=== PATIENT | female | born 1945 | race Caucasian/White ===

== ENCOUNTER → 2021-08-30 09:24 | Outpatient (CLI) | payer MEDICARE, SELFPAY ==
[2021-08-30 17:03] LABS: SARS-CoV-2 RNA PCR Negative
== END ==
PROVIDERS: PCP Family Medicine; Visit Provider Family Medicine
DX: R05.9 Cough, unspecified (principal); R51.9 Headache, unspecified; Z20.822 Contact with and (suspected) exposure to COVID-19
CPT/HCPCS: C9803; U0003; U0005

== ENCOUNTER → 2022-03-03 12:26 | Outpatient (CLI) | payer MEDICARE, SELFPAY ==
--- NOTE | ~2022-03-03 | DEXA_ITS ---
Bone Density Report Name: DAVEY ALVES Age: 76 Sex: Female Ethnicity: White Date of : 1945 Indication: osteopenia; monitoring treatment; height loss;postmenopausal Referring Provider: ADRIANE KENNEDY Study: Bone densitometry was performed. Exam Date: March 03, 2022 Accession number: [id number] Bone Density: Region BMD T-score Z-score Classification AP Spine (L1-L4) 0.876 -1.6 0.8 Osteopenia Femoral Neck (Left) 0.566 -2.5 -0.5 Osteoporosis Total Hip (Left) 0.756 -1.5 0.2 Osteopenia Femoral Neck (Right) 0.621 -2.1 0.0 Osteopenia Total Hip (Right) 0.733 -1.7 0.0 Osteopenia Total Hip Mean 0.745 -1.6 0.1 Osteopenia World Health Organization criteria for BMD impression classify patients as: Normal (T-score at or above -1.0), Osteopenia (T-score between -1.0 and -2.5), or Osteoporosis (T-score at or below -2.5). 10-year Fracture Risk: FRAX not reported because: Some T-score for Spine Total or Hip Total or Femoral Neck at or below -2.5 Treated for osteoporosis Previous Exams: Region Exam Age BMD T-score BMD Change BMD Change Date g/cm2 vs Baseline vs Previous AP Spine(L1-L4) 03/03/2022 76 0.876 -1.6 0.016 0.029* 08/31/2017 71 0.847 -1.8 -0.013 0.042* 08/26/2014 68 0.805 -2.2 -0.055* -0.030* 07/16/2012 66 0.835 -1.9 -0.025* -0.025* 11/03/2008 63 0.860 -1.7 Total Hip(Left) 03/03/2022 76 0.756 -1.5 -0.025 -0.023 08/31/2017 71 0.779 -1.3 -0.002 0.051* 08/26/2014 68 0.728 -1.8 -0.052* -0.018 07/16/2012 66 0.746 -1.6 -0.035* -0.035* 11/03/2008 63 0.781 -1.3 Total Hip(Right) 03/03/2022 76 0.733 -1.7 -0.073* -0.025 08/31/2017 71 0.758 -1.5 -0.047* 0.044* 08/26/2014 68 0.715 -1.9 -0.091* -0.067* 07/16/2012 66 0.781 -1.3 -0.025 -0.025 11/03/2008 63 0.806 -1.1 *Denotes significance at 95% confidence level, LSC for AP Spine = 0.022 g/cm2, LSC for Total Hip = 0.027 g/cm2 Clinical Information Provided by Patient: Is being treated for osteoporosis Has used the following medications: Prolia (i.e. denosumab), Vitamin D Patient maximum height was 60.0 Menopause Age: 52 No regular weight bearing exercise Drinks caffeinated beverages Onset of menses at age 15 Number of children 3
== END ==
PROVIDERS: PCP Family Medicine; Visit Provider Family Medicine
DX: Z78.0 Asymptomatic menopausal state (principal); M85.88 Other specified disorders of bone density and structure, other site; M81.0 Age-related osteoporosis without current pathological fracture; M85.852 Other specified disorders of bone density and structure, left thigh; M85.851 Other specified disorders of bone density and structure, right thigh
CPT/HCPCS: 77080

== ENCOUNTER 2022-03-23 13:35 | Outpatient (NON) | payer MEDICARE, SELFPAY ==
[2022-03-23 19:27] LABS: IFOB Positive Control Positive; Immunochemical Fecal Occult Bl Negative (N)
== END 2022-03-23 13:36 | disposition home or self-care (01) ==
LOC: ANHGOSHLAB 13:36
PROVIDERS: PCP Family Medicine; Visit Provider Physician Assistant
DX: D50.0 Iron deficiency anemia secondary to blood loss (chronic) (principal)
CPT/HCPCS: 82274

== ENCOUNTER 2022-07-21 10:11 | Day surgery (SDC) | payer MEDICARE, SELFPAY ==
[2022-05-27 09:31] VITALS: BMI 30.8
[2022-07-12 08:52] VITALS: BMI 30.2
--- NOTE | 2022-07-20 09:44 | WPDANESEPPF ---
Anes - Initial Pre Proc Eval Procedure: Operation Date: 07/21/22 12:30 Proposed Procedures p Screening Colonoscopy - Adryan Fox MD Date/Time: 07/20/22 09:44 Surgeon: Adryan Fox MD Pre Op Diagnosis: History of Colon Polyps Patient Data Age: 76 Gender: F Height: 1.5 m Weight: 68 kg Allergies Allergy/AdvReac Type Severity Reaction Status Date / Time ferrous gluconate AdvReac Mild Diarrhea Verified 07/21/22 11:10 alendronate sodium AdvReac Unknown Nausea Verified 07/21/22 11:10 topiramate AdvReac Unknown nausea Verified 07/21/22 11:10 Home Medications Medication Instructions Recorded Confirmed Type cholecalciferol (vitamin D3) 25 25 mcg PO DAILY 10/06/20 07/21/22 History mcg (1,000 unit) capsule cyclobenzaprine 5 mg tablet 5 mg PO TID PRN muscle spasm #30 10/06/20 07/21/22 Rx tabs sumatriptan succinate 50 mg tablet 50 mg PO ONCE PRN migraine 12/08/21 07/21/22 Rx headache #54 tabs denosumab 60 mg/mL subcutaneous 60 mg subcut [id number] 03/08/22 07/21/22 History syringe (Prolia) atorvastatin 20 mg tablet See Rx Instructions .Route 03/21/22 07/21/22 Rx .COMPLEX #90 tabs propranolol 60 mg capsule,24 See Rx Instructions .Route 03/21/22 07/21/22 Rx hr,extended release .COMPLEX #180 caps ferrous fumarate 324 mg (106 mg 324 mg PO DAILY #90 tabs 05/16/22 07/21/22 Rx iron) tablet sodium,potassium,mag sulfates 17.5 See Rx Instructions PO .COMPLEX 05/27/22 07/21/22 Rx gram-3.13 gram-1.6 gram oral soln #354 mL (Suprep Bowel Prep Kit) pantoprazole 40 mg tablet,delayed See Rx Instructions .Route 06/22/22 07/21/22 Rx release .COMPLEX #90 tabs Patient hx anesthesia problems: none Family hx anesthesia problems: none Results Review: All pre-operative results and documents have been reviewed as part of the pre-operative evaluation. [facility] Past Medical History Medical History (Updated 07/20/22 @ 09:44 by Roque Willis DO) History of chicken pox History of measles Hyperlipidemia Surgical History Surgical History History of appendectomy History of tubal ligation Family History Family History Father Acute myocardial infarction Mother Family history of kidney disease Other Family history of malignant neoplasm of breast in first degree relative Social History Social History Smoking packs per day: 1 Smoking cigarettes per day: 20.0 Smoking status: Never smoker Tobacco type: cigarettes Smoking end date: 01/14/91 Alcohol intake: unknown Substance use: never Substance use type: does not use Living arrangements: with family Spiritual care concerns: No Anes - Eval Final PreProcedure Day of Procedure 07/20/22 09:44 Patient weight: overweight Heart: regular rate and rhythm Lungs: clear to auscultation Airway: Mallampati scale class II Neurological: alert and oriented Last oral intake: >/= 8 hours ASA classification: II Emergent: no Anesthetic plan: proceed Anesthesia type and monitoring: general GIVS and standard monitoring Results Review: All pre-operative results and documents have been reviewed as part of the pre-operative evaluation. Informed Consent: The patient's anesthetic plan and its attendant risks and benefits were discussed with the patient/family/POA. Questions were solicited and answers provided to the satisfaction of the patient/family/POA.
[2022-07-21 11:05] VITALS: BP 150/75; PULSE 67; RESP 16; TEMP 37.1; O2SAT 100
[2022-07-21] MEDS: LACTATED RINGERS 1,000 ML 150 ML IV CONT (11:18)
--- NOTE | 2022-07-21 12:24 | PM.HPGS ---
History of Present Illness History of Present Illness Consent: Risks, benefits, and alternatives have been discussed and questions answered. Patient agrees to proceed with procedure. Chief complaint: History of Colon Polyps Narrative: Ivory Campbell is a 76 year old female Presents for colonoscopy. Patient's current weight appetite bowel movements are normal. She denies abdominal pain. She has had no bleeding. Family history noncontributory. Patient does have a prior history of colon polyps. Most recent colonoscopy [address] Arroyo was unremarkable. Review of Systems Review of Systems: Review of systems noncontributory. [facility] Past Medical History Medical History (Updated 07/21/22 @ 12:25 by Adryan Fox MD) History of chicken pox History of measles Hyperlipidemia Surgical History Surgical History History of appendectomy History of tubal ligation Family History Family History Father Acute myocardial infarction Mother Family history of kidney disease Other Family history of malignant neoplasm of breast in first degree relative Social History Social History Smoking packs per day: 1 Smoking cigarettes per day: 20.0 Smoking status: Never smoker Tobacco type: cigarettes Smoking end date: 01/14/91 Alcohol intake: unknown Substance use: never Substance use type: does not use Living arrangements: with family Spiritual care concerns: No Meds Home Medications and Allergies Home Medications Medication Instructions Recorded Confirmed Type cholecalciferol (vitamin D3) 25 25 mcg PO DAILY 10/06/20 07/21/22 History mcg (1,000 unit) capsule cyclobenzaprine 5 mg tablet 5 mg PO TID PRN muscle spasm #30 10/06/20 07/21/22 Rx tabs sumatriptan succinate 50 mg tablet 50 mg PO ONCE PRN migraine 12/08/21 07/21/22 Rx headache #54 tabs denosumab 60 mg/mL subcutaneous 60 mg subcut [id number] 03/08/22 07/21/22 History syringe (Prolia) atorvastatin 20 mg tablet See Rx Instructions .Route 03/21/22 07/21/22 Rx .COMPLEX #90 tabs propranolol 60 mg capsule,24 See Rx Instructions .Route 03/21/22 07/21/22 Rx hr,extended release .COMPLEX #180 caps ferrous fumarate 324 mg (106 mg 324 mg PO DAILY #90 tabs 05/16/22 07/21/22 Rx iron) tablet sodium,potassium,mag sulfates 17.5 See Rx Instructions PO .COMPLEX 05/27/22 07/21/22 Rx gram-3.13 gram-1.6 gram oral soln #354 mL (Suprep Bowel Prep Kit) pantoprazole 40 mg tablet,delayed See Rx Instructions .Route 06/22/22 07/21/22 Rx release .COMPLEX #90 tabs Allergies Allergy/AdvReac Type Severity Reaction Status Date / Time ferrous gluconate AdvReac Mild Diarrhea Verified 07/21/22 11:10 alendronate sodium AdvReac Unknown Nausea Verified 07/21/22 11:10 topiramate AdvReac Unknown nausea Verified 07/21/22 11:10 Vital Signs Vital Signs - 24 hr 07/21/22 11:05 Temperature 98.8 F Pulse Rate 67 Respiratory Rate 16 Blood Pressure 150/75 H Pulse Oximetry 100 Oxygen Delivery Room Air Exam Narrative: Physical exam reveals patient to be alert. Vital signs stable. HEENT exam is unremarkable. Patient is anicteric. Lungs are clear. Heart without murmur. Abdomen bowel sounds present soft nontender with no organomegaly. Digital external rectal exam is normal. Assessment and Plan Assessment and plan (1) Encounter for screening colonoscopy: Code(s): Z12.11 - Encounter for screening for malignant neoplasm of colon Status: Acute Assessment and Plan: Patient presents for screening colonoscopy. She has a very distant history of colon polyps. Further recommendations will be given after endoscopy.
[2022-07-21 12:44] VITALS: BP 112/53; PULSE 64; RESP 18; O2SAT 97
[2022-07-21 12:54] VITALS: BP 130/57; PULSE 73; RESP 14; O2SAT 100
--- NOTE | 2022-07-21 12:55 | WPDANESPN ---
Anes - Prog Note Post-Op Date/Time: 07/21/22 12:55 Cardiovascular status: normal Respiratory status: normal Airway patency: baseline Mental status: baseline Post-Op hydration status: normal Vital Signs: Last Vital Signs Temp 37.1 C 07/21/22 11:05 Pulse 64 07/21/22 12:44 Resp 18 07/21/22 12:44 BP 112/53 L 07/21/22 12:44 Pulse Ox 97 07/21/22 12:44 O2 Del Method Room Air 07/21/22 12:44 Pain Score (VAS): 0 I/O: Intake & Output 07/20/22 07/21/22 07/21/22 23:59 07:59 15:59 Intake Total 500 Balance 500 Post-procedural complaints: none Patient Feedback: Patient satisfied with anesthetic care. Other Findings: Patient vital signs back to baseline. Patient denies nausea and vomiting. Patient's pain under control. Patient OK for discharge.
[2022-07-21 13:04] VITALS: BP 126/58; PULSE 57; RESP 16; O2SAT 99
[2022-07-21 13:14] VITALS: BP 134/61; PULSE 56; RESP 15; O2SAT 97
== END 2022-07-21 13:37 | disposition home or self-care (01) ==
PROVIDERS: PCP Family Medicine; Visit Provider Internal Medicine Gastroenterology
PROC: 0DJD8ZZ Inspection of Lower Intestinal Tract, Via Natural or Artificial Opening Endoscopic (ICD-10-PCS; CPT 45378; principal; 2022-07-21 12:30)
DX: Z12.11 Encounter for screening for malignant neoplasm of colon (principal)
CPT/HCPCS: 45378

== ENCOUNTER → 2022-12-27 14:34 | Outpatient (CLI) | payer MEDICARE, SELFPAY ==
--- NOTE | ~2022-12-27 | XR_ITS ---
EXAM: XR shoulder LT min 2V DATE: 12/27/2022 14:56 HISTORY: no injury pain left shoulder . COMPARISON: None available. FINDINGS: Decreased mineralization. No fracture or dislocation. No lytic or blastic lesion. Moderate AC joint and mild glenohumeral degenerative change. Subacromial narrowing. No erosion or periosteal change. Soft tissues within normal limits. Large hiatal hernia. IMPRESSION: Polyarticular left shoulder osteoarthritis. Radiographic findings suggestive of rotator c uff pathology. Reviewed, dictated and finalized at location K. IMPRESSION: Polyarticular left shoulder osteoarthritis. Radiographic findings s uggestive of rotator cuff pathology.
== END ==
PROVIDERS: PCP Family Medicine; Visit Provider Nurse Practitioner Family
DX: M19.012 Primary osteoarthritis, left shoulder (principal)
CPT/HCPCS: 73030

== ENCOUNTER → 2023-01-06 10:44 | Outpatient (CLI) | payer MEDICARE, SELFPAY ==
--- NOTE | ~2023-01-06 | MR_ITS ---
EXAMINATION: MR shoulder LT wo con DATE: 01/06/2023 11:33 INDICATION: Left shoulder pain TECHNIQUE: Magnetic resonance imaging (MRI) of the left shoulder was performed without intravenous co ntrast. Sequences included axial PD-weighted FS FSE, coronal oblique PD-weighted FS FSE, coronal obli que T2-weighted FS FSE, sagittal PD-weighted FS FSE, and sagittal T1-weighted SE. COMPARISON: Left shoulder radiographs dated 12/27/2022 FINDINGS: Coracoacromial arch: The acromion undersurface is curved in morphology (type II). Small anterior subacromial spur at the i nsertion of the normal coracoacromial ligament. Mild acromioclavicular osteoarthritis. Rotator cuff: Mild supraspinatus and infraspinatus tendinopathy without tear. The teres minor tendon is normal. Mil d subscapularis tendinopathy with small intrasubstance tear measuring 4 mm in maximal dimension along the central aspect of the lesser tuberosity footplate. Normal rotator cuff muscle bulk and signal. Biceps tendon, glenoid labrum and glenohumeral cartilage: Long head of the biceps tendon is normal. Normal anterosuperior sublingual foramen. There is linear i ncreased signal in the more caudal anteroinferior labrum consistent with labral tear. Partial-thickne ss cartilage loss along the cephalad third of the glenoid with suggestion of chondral surface regular ity along the superior and . Additional partial-thickness cartilage loss with chondral surface regula rity along the medial superomedial aspect of the humeral head. Fluid: Small amount of fluid extending along the long head biceps tendon sheath which is disproportionate to the physiologic amount fluid in the glenohumeral joint space consistent with bicipital tenosynovitis . No loose osteochondral bodies. Mild increased fluid signal in the subacromial/subdeltoid bursa cons istent with mild bursitis. Bones: Normal marrow signal with no edema, fracture or abnormal marrow replacing process. There is thickenin g of the joint capsule at the axillary recess as well as increased soft tissue density resulting loss of the normal T1 hyperintense fat signal at the rotator cuff interval, both findings which can be se en in the setting of adhesive capsulitis which is a clinical diagnosis. IMPRESSION: 1. Mild supraspinatus, infraspinatus and subscapularis tendinopathy with very small intrasubstance te ar at the lesser tuberosity insertion of the subscapularis tendon. 2. Mild glenohumeral osteoarthritis with tear of the anteroinferior glenoid labrum. 3. Capsular thickening at the axillary recess and rotator cuff interval which can be seen with adhesi ve capsulitis which is a clinical diagnosis. 4. Mild acromion clavicular osteoarthritis. 5. Mild bicipital tenosynovitis and mild subacromial/subdeltoid bursitis. Reviewed, dictated and finalized at location A. IMPRESSION: 1. Mild supraspinatus, infraspinatus and subscapularis tendinopathy with very s mall intrasubstance tear at the lesser tuberosity insertion of the subscapulari s tendon. 2. Mild glenohumeral osteoarthritis with tear of the anteroinferior glenoid lab rum. 3. Capsular thickening at the axillary recess and rotator cuff interval which c an be seen with adhesive capsulitis which is a clinical diagnosis. 4. Mild acromion clavicular osteoarthritis. 5. Mild bicipital tenosynovitis and mild subacromial/subdeltoid bursitis.
== END ==
PROVIDERS: PCP Family Medicine; Visit Provider Nurse Practitioner Family
DX: M19.012 Primary osteoarthritis, left shoulder (principal); M75.22 Bicipital tendinitis, left shoulder
CPT/HCPCS: 73221

== ENCOUNTER 2023-02-22 12:30 | Outpatient (RCR) | payer MEDICARE, SELFPAY ==
[2023-01-03 08:06] VITALS: BP_SYST 120
--- NOTE | 2023-01-03 09:05 | OPREHPOC ---
Outpatient Therapy Plan of Care This is a Multidisciplinary Plan of Care that may contain components documented by all disciplines (PT, OT, and ST.) PT Problem 1 PT Problem #1 Knowledge Deficit PT Goal 1 Goal Pt to be IND with issued HEP Target Visit 6 PT Problem 2 PT Problem #2 Pain PT Goal 1 Goal Pt to report pain no greater than 3/10 in the last week Target Visit 6 PT Goal 2 Goal Pt to report 90% return to PLOF. Target Visit 6 PT Problem 3 PT Problem #3 Impaired Range of Motion PT Goal 1 Goal Pt to increase active shoulder flexion to 130 and active abduction to 110 on the L Target Visit 6 PT Goal 2 Goal Pt to demonstrate functional rotation ROM within 2 spinal levels of uninvolved side Target Visit 6 PT Problem 4 PT Problem #4 Impaired Strength PT Goal 1 Goal Pt to demonstrate equal strength in her shoulders Target Visit 6
--- NOTE | 2023-01-03 09:05 | PTOPEVAL1 ---
Assessment and note entered by Alyce Mckeon, PT, DPT Evaluation Information Assessment Status Evaluation Diagnosis L shoulder pain Onset 3 months Subjective Information Pt reports intermittent shoulder pain, especially when reaching out to grab something she will get a sharp pain. She reports a 3 month history of pain after a fall, she remembers falling on that side but does not remember hurting her shoulder at the time. She reports pain from 0-2/10 at rest, and 5/ 10 with quick movements. She reports her function has not been really limited d/t it being her non-dominant shoulder. Reported Pain Level Pain Score 1: Self Report Assessment PT Clinical Summary Ivory presents to therapy today for her initial evaluation with a diagnosis of L shoulder pain after a fall. Today she demonstrates decreased active shoulder motion when compared to her R shoulder as well as minor decreases in shoulder strength. Special tests are negative. She demonstrates bailee forward and rounded shoulders. Skilled therapy services are indicated to address the deficits noted above, to manage pain, to improve motion, and to return to PLOF. Plan of Care Interventions Electrical Stimulation,Hot Pack/Cold Pack,Manual Therapy,Neuro Re-education,Patient/Caregiver Educati,Therapeutic Activities,Therapeutic Exercise PT Services Indicated Yes Treatment Frequency and 2x/wk for 3 wks Duration These treatments will address the objective and functional deficits as defined above. The patient will be advanced safely and appropriately in order for the patient to progress towards his/her prior level of function. Additional exercises will be introduced and as well as a comprehensive home exercise program upon discharge, if needed, ?to ensure carryover of functional gains achieved in the clinic. This treatment plan has been reviewed and agreement upon by the patient.
--- NOTE | 2023-01-11 15:58 | PCPTNOTE ---
Patient no show no call. Left voicemail to call back to reschedule. Patient called back hours later to state she forgot appointment.
--- NOTE | 2023-01-24 15:52 | PTOPPROG ---
Assessment and note entered by Alyce Mckeon, PT, DPT Evaluation Information Assessment Status Progress Diagnosis L shoulder pain Onset 3 months Subjective Information Pt states she is improving. She states her shoulder has no pain at rest but continues to have pain with motion and performing ADLs. Pt reports 40% improvement in her overall symptoms. Assessment PT Clinical Summary Ivory presents to therapy today for her progress report following 4 visits of skilled therapy to treat her diagnosis of L shoulder pain after a fall. Today she demonstrates slightly improvements in her L shoulder ROM, improvements in her strength, and minor decreases in pain reports. She continues to have limitations in her L shoulder function when compared to her R. Continuations of skilled therapy are indicated to progress towards therapy goals and PLOF. Plan of Care Interventions Electrical Stimulation,Hot Pack/Cold Pack,Manual Therapy,Neuro Re-education,Patient/Caregiver Educati,Therapeutic Activities,Therapeutic Exercise PT Services Indicated Yes Treatment Frequency and 1x/wk for 4 wks per pt request Duration These treatments will address the objective and functional deficits as defined above. The patient will be advanced safely and appropriately in order for the patient to progress towards his/her prior level of function. Additional exercises will be introduced and as well as a comprehensive home exercise program upon discharge, if needed, ?to ensure carryover of functional gains achieved in the clinic. This treatment plan has been reviewed and agreement upon by the patient.
--- NOTE | 2023-02-03 10:20 | PCPTNOTE ---
Patient called to cancel this date due to illness.
--- NOTE | 2023-02-22 13:17 | PTOPDC ---
Assessment and note entered by Alyce Mckeon, PT, DPT Evaluation Information Assessment Status Discharge Diagnosis L shoulder pain Onset 3 months Subjective Information Pt states she is unsure of how much improvement there really is in her shoulder. She states most of the time when she has pain is after doing her exercises. Reported Pain Level Pain Score 0: Self Report Assessment PT Clinical Summary Ivory presents to therapy today for her progress report following 7 visits of skilled therapy to treat her diagnosis of L shoulder pain after a fall. Today she demonstrates improvements in her L shoulder active ROM but is still decreased from her R side. Her strength is now equal. She continues to have random increases in pain. Pt states d/t her busy schedule she would like to continue her exercises on her own from now own. Pt will therefore be discharged at this time.
== END 2023-02-22 14:51 | disposition home or self-care (01) ==
LOC: ANHGOSHPT 12:30
PROVIDERS: PCP Family Medicine; Visit Provider Nurse Practitioner Family
DX: M25.512 Pain in left shoulder (principal)
CPT/HCPCS: 97110; 97112; 97140; 97161; 97530; 99199

== ENCOUNTER → 2023-05-30 11:12 | Outpatient (CLI) | payer MEDICARE, SELFPAY ==
--- NOTE | ~2023-05-30 | MMUS_ITS ---
EXAMINATION: MM diagnostic brando BI w armando, US breast BI complete HISTORY: TECHNIQUE: Additional 3-D tomosynthesis images of were performed and synthetic 2-D images were genera gelacio. CAD analysis was submitted and interpreted. High resolution breast ultrasound was performed. COMPARISON: August 31, 2017, August 28, 2015 bilateral screening mammogram examinations BREAST PARENCHYMAL COMPOSITION: There are scattered areas of fibroglandular density. FINDINGS: MAMMOGRAPHIC FINDINGS: Left breast: Focal architectural distortion is suggested in the upper mid left breast. There are a couple of several millimeter benign-appearing circumscribed opacities in the anterior red tral left breast. Right breast: There is focal asymmetry and suggestion of spiculation in the inferior subareolar area of the right b reast. ULTRASOUND: Left breast: 12:00 4 cm from nipple: There is irregular hypoechogenicity with anti--parallel configuration, measur ing up to approximately 4.7 mm width, 6.5 mm depth, with prominent posterior shadowing. There is spic ulation. There is increased color flow signal indicating increased vascularity in this area. The sono graphic features are very suspicious. Right breast: Subareolar area: 3.5 x 3.2 mm irregular hypoechoic mass without internal vascularity or posterior fea tures. Irregular margins are of concern. Ultrasound-guided biopsy is recommended. IMPRESSION: 1. Bilateral suspicious mammographic and sonographic findings, at right breast subareolar area and ri ght breast 12:00 4 cm from nipple 2. Ultrasound-guided biopsy of both breasts is recommended BI-RADS category 4, suspicious findings. Dr. Sharp telephoned the report and ultrasound-guided biopsy recommendations on 05/30/2023 at 1335 viri rs to [employer] Engineer. Reviewed, dictated and finalized at location A. TRANSPORTATION MANAGER IMPRESSION: 1. Bilateral suspicious mammographic and sonographic findings, at right breast subareolar area and right breast 12:00 4 cm from nipple 2. Ultrasound-guided biopsy of both breasts is recommended BI-RADS category 4, suspicious findings. Dr. Sharp telephoned the report and ultrasound-guided biopsy recommendations on 05/30/2023 at 1335 hours to Lucretia BoxCryogenics Engineer. IMPRESSION: 1. Bilateral suspicious mammographic and sonographic findings, at right breast subareolar area and right breast 12:00 4 cm from nipple 2. Ultrasound-guided biopsy of both breasts is recommended BI-RADS category 4, suspicious findings. Dr. Sharp telephoned the report and ultrasound-guided biopsy recommendations on 05/30/2023 at 1335 hours to Lucretia Box.
== END ==
PROVIDERS: PCP Nurse Practitioner Family; Visit Provider Nurse Practitioner Family
DX: R92.8 Other abnormal and inconclusive findings on diagnostic imaging of breast (principal); N64.4 Mastodynia
CPT/HCPCS: 76641; 77062; 77066; G0279

== ENCOUNTER 2023-06-08 09:59 | Outpatient (CLI) | payer MEDICARE, SELFPAY ==
--- NOTE | ~2023-06-08 | MMUS_ITS ---
EXAMINATION: US GUIDED NEEDLE BIOPSY DATE: 06/08/2023 12:50 CELL OPERATOR INDICATION: Right subareolar and left 12:00 sonographic masses TECHNIQUE AND FINDINGS: The risks and potential benefits of the procedure were discussed with the patient, and written inform ed consent was obtained. Timeout procedure was performed. After sterile preparation of each breast, 1 % lidocaine was utilized for local anesthesia. A 12 G spring-loaded biopsy gun needle was advanced to the edge of the right subareolar lesion from a medial approach and subsequently the left 12:00 lesion from a lateral approach utilizing sonographic guidance. A total of three tissue core samples were obtained through each lesion. An Inrad tissue marker clip was placed at each of the biopsy sites. Hemostasis was achieved. A sterile bandage was ap plied. The patient tolerated procedure well and there was no evidence of immediate complication. The patien t was given verbal instructions prior to departing from the department. A two view mammogram was perf ormed to document tissue marker clip placement. The tissue samples were submitted to surgical patholo gy for histologic analysis. IMPRESSION: Ultrasound guided biopsy of right subareolar and left 12:00 sonographic lesions with biopsy marker p lacement. Please refer to pathology report for histologic analysis. Reviewed, dictated and finalized at Location [facility]. Reviewed, dictated and finalized at location A. OPERATOR IMPRESSION: Ultrasound guided biopsy of right subareolar and left 12:00 sonographic lesion s with biopsy marker placement. Please refer to pathology report for histologic analysis. IMPRESSION: Ultrasound guided biopsy of right subareolar and left 12:00 sonographic lesion s with biopsy marker placement. Please refer to pathology report for histologic analysis.
== END 2023-06-08 10:00 | disposition home or self-care (01) ==
LOC: ANHIMG 10:02
PROVIDERS: PCP Nurse Practitioner Family; Visit Provider Nurse Practitioner Family
DX: R92.8 Other abnormal and inconclusive findings on diagnostic imaging of breast (principal)
CPT/HCPCS: 19083; 19084; 88305; A4648

== ENCOUNTER 2023-10-17 13:45 | Outpatient (CLI) | payer MEDICARE, SELFPAY ==
--- NOTE | ~2023-10-17 | MMUS_ITS ---
EXAMINATION: MM diagnostic brando BI w armando, US breast BI limited HISTORY: 3 month follow-up was recommended for possible lack of concordance between imaging and patho logy findings on biopsies of right subareolar breast lesion and left breast 12:00 lesion 4 cm from ni pple TECHNIQUE: ML, MLO and CC Tomosynthesis images of both breasts were performed and synthetic 2-D image s were generated. CAD analysis was submitted and interpreted. High resolution limited bilateral breas t ultrasound was performed. COMPARISON: 05/30/2023 bilateral diagnostic mammography and bilateral complete breast ultrasound exam ination BREAST PARENCHYMAL COMPOSITION: There are scattered areas of fibroglandular density. FINDINGS: MAMMOGRAPHIC FINDINGS: A right-sided biopsy marker is present anteriorly in the lower midline approximately 3.3 cm inferior to the nipple. There is a biopsy marker in the upper anterior left breast approximately 1 cm lateral to the mid sagi ttal plane. No significant new or developing mass is evident in either breast compared to 05/30/2023 ULTRASOUND: Right breast: A marker is present in the lower right subareolar area. No suspicious mass is identifie d in this area. Left breast: A biopsy marker is noted in the 12:00 area 4 cm from the nipple. At 12:00 4 cm from the nipple there is an irregular hypoechoic 5 mm area with prominent posterior sha dowing. Ultrasound-guided guided biopsy of this area is recommended. IMPRESSION: 1. Suspicious approximate 5 mm irregular hypoechoic prominently posteriorly shadowing area of left br east at 12:00 4 cm from the nipple 2. Repeat ultrasound-guided biopsy of this left breast 12:00 area 4 cm from nipple is recommended BI-RADS category 4, suspicious findings. Dr. Sharp telephoned the report and the ultrasound-guided biopsy recommendation for the left breast 12 :00 hypoechoic shadowing area 4 cm from the nipple on October 19, 2023 at 1125 hours to Medical Alfie Geronimo. Reviewed, dictated and finalized at location A. IMPRESSION: 1. Suspicious approximate 5 mm irregular hypoechoic prominently posteriorly sha dowing area of left breast at 12:00 4 cm from the nipple 2. Repeat ultrasound-guided biopsy of this left breast 12:00 area 4 cm from nip ple is recommended BI-RADS category 4, suspicious findings. Dr. Sharp telephoned the report and the ultrasound-guided biopsy recommendation for the left breast 12:00 hypoechoic shadowing area 4 cm from the nipple on Oct at 1125 hours to [facility].
== END 2023-10-17 13:46 | disposition home or self-care (01) ==
PROVIDERS: PCP Nurse Practitioner Family; Visit Provider Nurse Practitioner Family
DX: R92.8 Other abnormal and inconclusive findings on diagnostic imaging of breast (principal)
CPT/HCPCS: 76642; 77062; 77066; G0279

== ENCOUNTER 2023-10-31 08:08 | Outpatient (CLI) | payer MEDICARE, SELFPAY ==
--- NOTE | ~2023-10-31 | MMUS_ITS ---
EXAMINATION: US GUIDED NEEDLE BIOPSY DATE: 10/31/2023 13:27 CDT INDICATION: Palpable left breast mass. Recent ultrasound demonstrated a 14 mm hypoechoic solid lesio n. TECHNIQUE AND FINDINGS: The risks and potential benefits of the procedure were discussed with the patient, and written inform ed consent was obtained. Timeout procedure was performed. After sterile preparation of the left breas t, 1% lidocaine was utilized for local anesthesia. A 12G spring-loaded biopsy gun needle was advanced to the edge of the region of interest from an infe rior approach utilizing sonographic guidance. A total of 5 tissue core samples were obtained through the lesion. An Inrad tissue marker clip was then placed at the biopsy site. Hemostasis was achieved . A sterile bandage was applied. The patient tolerated procedure well and there was no evidence of immediate complication. The patien t was given verbal instructions prior to departing from the department. A two view mammogram was perf ormed to document tissue marker clip placement. The tissue samples were submitted to surgical patholo gy for histologic analysis. IMPRESSION: Ultrasound guided biopsy of left 12:00.. breast mass with biopsy marker placement. Please refer to pa thology report for histologic analysis. Reviewed, dictated and finalized at Location A. Reviewed, dictated and finalized at location A. IMPRESSION: Ultrasound guided biopsy of left 12:00.. breast mass with biopsy marker placeme nt. Please refer to pathology report for histologic analysis.
== END 2023-10-31 08:09 | disposition home or self-care (01) ==
PROVIDERS: PCP Nurse Practitioner Family; Visit Provider Family Medicine
DX: R92.8 Other abnormal and inconclusive findings on diagnostic imaging of breast (principal)
CPT/HCPCS: 19083; 88305

== ENCOUNTER 2024-02-12 10:09 | Emergency (ER) | payer MEDICARE, SELFPAY ==
--- NOTE | 2024-02-12 10:12 | ED.URI ---
HPI - URI/Sore Throat General Chief Complaint: Upper Respiratory Infection Stated Complaint: Cough Time Seen by Provider: 02/12/24 11:20 Source: patient, RN notes reviewed and old records reviewed Mode of arrival: ambulatory Limitations: no limitations History of Present Illness HPI Narrative: 78-year-old female presents to the [facility] with a cough since yesterday. States that she took some Advil. Denies any fevers, sinus congestion, sinus pressure. Denies a sore throat reports that it has some fullness to it. Patient states that she just needs to be better by Monday Onset (ago): day(s) (1) Treatments prior to arrival: other (Advil) Related Data Home Medications Medication Instructions Recorded Confirmed cholecalciferol (vitamin D3) 25 25 mcg PO DAILY 10/06/20 02/12/24 mcg (1,000 unit) capsule Allergies Allergy/AdvReac Type Severity Reaction Status Date / Time ferrous gluconate AdvReac Mild Diarrhea Verified 02/12/24 10:35 alendronate sodium AdvReac Unknown Nausea Verified 02/12/24 10:35 topiramate AdvReac Unknown nausea Verified 02/12/24 10:35 Review of Systems Review of Systems: All systems reviewed & are unremarkable except as noted in HPI and below Constitutional: Constitutional: Reports no additional constitutional complaints Eyes: Eyes: Reports no additional eye complaints ENT: Reports system reviewed and no additional complaints, except as documented Cardiovascular: Cardiovascular: Reports no additional cardiovascular complaints, Denies chest pain and Denies dyspnea Respiratory: Respiratory: Reports as per HPI, Denies chest congestion, Reports cough and Denies dyspnea Gastrointestinal: Gastrointestinal: Reports no additional gastrointestinal complaints, Denies abdominal pain, Denies nausea and Denies vomiting Musculoskeletal: Musculoskeletal: Reports no additional musculoskeletal complaints Integumentary/Breasts: Skin/Breast: Reports system reviewed and no additional complaints, except as docu Neurologic: Reports system reviewed and no additional complaints, except as documented Psychiatric: Psychiatric: Reports no additional psychiatric complaints Allergic/Immunologic: Allergic/Immunologic: Reports no additional allergic/immunologic complaints PMFSH Past Medical History Medical History History of chicken pox History of measles Hyperlipidemia Surgical History Surgical History History of appendectomy History of tubal ligation Family History Family History Father Acute myocardial infarction Mother Family history of kidney disease Other Family history of malignant neoplasm of breast in first degree relative Social History Social History Smoking packs per day: 1 Smoking cigarettes per day: 20.0 Smoking status: Never smoker Tobacco type: cigarettes Smoking end date: 01/14/91 Alcohol intake: unknown Substance use: never Substance use type: does not use Living arrangements: with family Spiritual care concerns: No Comments At the time of my signature, I reviewed and agree with the nursing past medical, surgical, social, and family history. There is no relevant family history pertinent to the patient complaint. Exam Const: General: cooperative, healthy appearing, comfortable, no acute distress, well developed, alert and well nourished Nutritional Appearance: well nourished Orientation/consciousness: patient oriented x3 Limitations: no limitations HENMT: Head: normal to inspection Ears: hearing grossly normal bilaterally, external ears normal, TM's normal bilaterally, EAC's normal, mastoids normal and no periauricular adenopathy Face/Nose/Sinus: Normal external nose present, Normal nares present, Normal nasal mucous membr
[2024-02-12 10:54] VITALS: BP 169/69; PULSE 58; RESP 16; TEMP 36.6; O2SAT 100
[2024-02-12 11:30] LABS: EDINFLUASCREEN Negative; EDINFLUBSCREEN Negative
[2024-02-12 11:47] LABS: EDSTREPNEGPOS1 Presumptive Negative
== END 2024-02-12 11:43 | disposition home or self-care (01) ==
PROVIDERS: Emergency Provider Nurse Practitioner; PCP Nurse Practitioner Family
DX: J06.9 Acute upper respiratory infection, unspecified (principal); Z20.822 Contact with and (suspected) exposure to COVID-19; Z87.891 Personal history of nicotine dependence; E78.5 Hyperlipidemia, unspecified
CPT/HCPCS: 87081; 87426; 87804; 87880; 99213; G0463

== ENCOUNTER 2024-06-12 13:49 | Outpatient (CLI) | payer MEDICARE, SELFPAY ==
--- NOTE | ~2024-06-12 | DEXA_ITS ---
Bone Density Report Name: DAVEY ALVES Age: 78 Sex: Female Ethnicity: White Date of : 1945 Indication: postmenopausal; screening for osteoporosis; Referring Provider: DONALDO KENNEDY Study: Bone densitometry was performed. Exam Date: June 12, 2024 Accession number: [id number] Bone Density: Region BMD T-score Z-score Classification AP Spine(L1-L4) 0.891 -1.4 1.1 Osteopenia Femoral Neck (Left) 0.543 -2.8 -0.6 Osteoporosis Total Hip (Left) 0.767 -1.4 0.4 Osteopenia Femoral Neck (Right) 0.597 -2.3 -0.1 Osteopenia Total Hip (Right) 0.821 -1.0 0.9 Normal Total Hip Mean 0.794 -1.2 0.7 Osteopenia World Health Organization criteria for BMD impression classify patients as: Normal (T-score at or above -1.0), Osteopenia (T-score between -1.0 and -2.5), or Osteoporosis (T-score at or below -2.5). 10-year Fracture Risk: FRAX not reported because: Some T-score for Spine Total or Hip Total or Femoral Neck at or below -2.5 Treated for osteoporosis Clinical Information Provided by Patient: Is being treated for osteoporosis Has used the following medications: Prolia (i.e. denosumab), Vitamin D Patient maximum height was 50 No regular weight bearing exercise Onset of menses at age 15 Number of children 3 Impression: The patient has osteoporosis, based on the Left Femoral Neck T-score. Discussion: It is important to ask patients whether they are taking their medications and to encourage continued and appropriate compliance with their osteoporosis therapies to reduce fracture risk. It is also important to review their risk factors and encourage appropriate calcium and vitamin D intakes, exercise, fall prevention and other lifestyle measures. Follow-Up: Consider a repeat BMD and Vertebral Fracture Assessment (VFA) exam in 2 years or sooner if medically necessary, to reassess this patient's status. Reported by: PERLA on 06/12/2024 2:17:00 PM. Reviewed, dictated and finalized at location ADomo PAN
== END 2024-06-12 13:50 | disposition home or self-care (01) ==
LOC: ANHIMG 13:50
PROVIDERS: PCP Family Medicine; Visit Provider Family Medicine
DX: M81.0 Age-related osteoporosis without current pathological fracture (principal); M85.88 Other specified disorders of bone density and structure, other site; M85.852 Other specified disorders of bone density and structure, left thigh; M85.851 Other specified disorders of bone density and structure, right thigh
CPT/HCPCS: 77080

== ENCOUNTER 2024-11-06 13:46 | Outpatient (CLI) | payer MEDICARE, SELFPAY ==
--- NOTE | ~2024-11-06 | MM_ITS ---
EXAMINATION: MM screening brando BI w armando HISTORY: Screening TECHNIQUE: Craniocaudal and mediolateral oblique 3-D tomosynthesis images were obtained and synthetic 2-D images were generated. CAD analysis was submitted and interpreted. COMPARISON: Comparison to multiple prior studies sequentially, with oldest reviewed study dated 08/28. BREAST PARENCHYMAL COMPOSITION: Not dense: There are scattered areas of fibroglandular density. FINDINGS: Stable bilateral post biopsy changes. There is no evidence of suspicious mass, calcificatio n, or architectural distortion to suggest malignancy in either breast. There has been no suspicious i nterval change. IMPRESSION: 1. No mammographic evidence of malignancy. 2. Recommend routine screening mammography in one year. BI-RADS Category 2: Benign finding(s). Reviewed, dictated and finalized at location A.
--- OUTSIDE RECORDS SUMMARY | 2024-11-06 14:40 | XMS_ITS | Clinical Summary ---
Author Organization [facility] Address [address] [place] [address] Phone Care Team Providers Care Finishing Department Supervisor Name Role Phone Shalom Sandoval MD Primary Care Provider [phone] Allergies No known active allergies Medications atorvastatin (LIPITOR) 20 MG Tablet 0 Active pantoprazole (PROTONIX) 40 MG Tablet Delayed Response 0 Active propranolol (INDERAL LA) 60 MG CAPSULE SR 24 HR 0 Active SUMAtriptan (IMITREX) 50 MG Tablet 0 Active VITAMIN D PO Take by mouth. Ac tive albuterol (ProAir HFA) 108 (90 Base) MCG/ACT Aerosol SolutionIndicat ions:Dyspnea on exertion take 2 Puffs by inhalation every 4 hours as needed for Wheezing or Cough. 1 Inhaler 0 Active Active Problems No known active problems Social History Tobacco Use Types Packs/Day Years Used Date Smoking Tobacco: Never Smokeless Tobacco: Never Comments No Sex and Gender Information Value Date Recorded Sex Assigned at Not on file Legal Sex Female 11:55 PM CDT Gender Identity Not on file Sexual Orientation Not on file Last Filed Vital Signs Vital Sign Reading Time Taken Comments Blood Pressure 90/60 07/02/2020 10:04 AM [employer]INC [employer]ATE [employer]TER Pulse 58 07/02/2020 10:04 AM [employer] Temperature 36.2 C (97.1 F) 07/02/2020 10:04 AM [employer]TER Respiratory Rate 16 06/24/2020 9:09 AM [employer]TER Oxygen Saturation 95% 07/02/2020 10:04 AM [employer]TER Inhaled Oxygen Concentration - - Weight 70.3 kg (155 lb) 06/24/2020 9:09 AM [employer]ATE [employer]TER Height - - Body Mass Index - - Plan of Treatment Health Maintenance Due Date Last Done Comments DEXA Bone Density 1945 Hepatitis C Virus (HCV) Screening 1945 TdaP Immunization 1945 Pneumococcal Immunization (5 0+ years) (1 of 1 - PCV) 1997 Zoster Immunization (1 of 2) 1997 Respiratory Syncytial Virus (RSV) Immunization (Adult) (1 - 1-dose 75+ series) 2022 Influenza Immunization (#1) 03/10/202404/09, 08/14/2017, 06/14/2015 SARS-COV-2 Immunization ( season) 2024 06/28/2021, 10/15/2020, 09/17/2020 Hepatitis B Immunization Aged Out No longer eligible based on patient's age to complete this topic Meningococcal Immunization (ACWY) Aged Out No longer eligible b ased on patient's age to complete this topic Rotavirus Immunization Aged Out No lo nger eligible based on patient's age to complete this topic Insurance MEDICARE C [employer] Care Teams Finishing Department Supervisor Relationship Specialty Start Date End Date Shalom Sandoval MD [address] [place] [id number] PCP - General Family Medicine 06/24/20
== END 2024-11-06 13:47 | disposition home or self-care (01) ==
LOC: ANHIMG 13:47
PROVIDERS: PCP Family Medicine; Visit Provider Nurse Practitioner Family
DX: Z12.31 Encounter for screening mammogram for malignant neoplasm of breast (principal)
CPT/HCPCS: 77063; 77067

== ENCOUNTER 2025-04-07 15:15 | Outpatient (CLI) | payer MEDICARE, SELFPAY ==
--- NOTE | ~2025-04-07 | XR_ITS ---
EXAMINATION: XR knee RT 3V, 04/07/2025 15:22 CDT HISTORY: Pain in right knee x 5 months, no injury, no surgery COMPARISON: No comparisons available. Findings: No acute fracture or malalignment. No significant degenerative changes. Soft tissues unremarkable. Impression: No acute fracture or malalignment. Reviewed, dictated and finalized at location P. Impression: No acute fracture or malalignment.
--- NOTE | ~2025-04-07 | XR_ITS ---
EXAMINATION: XR hip RT 2V w AP pelvis, 04/07/2025 15:22 CDT HISTORY: - Pain in right hip x 5 months, no injury, no surgery COMPARISON: No comparisons available. Findings: No acute fracture or malalignment. No significant degenerative changes. Soft tissues unremarkable. Impression: No acute fracture or malalignment. Reviewed, dictated and finalized at location P. Impression: No acute fracture or malalignment.
== END 2025-04-07 15:16 | disposition home or self-care (01) ==
LOC: GOSHIMG 15:15
PROVIDERS: PCP Family Medicine; Visit Provider Nurse Practitioner Family
DX: M25.561 Pain in right knee (principal); M25.551 Pain in right hip
CPT/HCPCS: 73502; 73562

== ENCOUNTER 2025-06-25 12:30 | Outpatient (RCR) | payer MEDICARE, SELFPAY ==
--- NOTE | 2025-04-30 16:19 | OPREHPOC ---
Outpatient Therapy Plan of Care This is a Multidisciplinary Plan of Care that may contain components documented by all disciplines (PT, OT, and ST.) PT Problem 1 PT Problem #1 Knowledge Deficit PT Goal 1 Goal / Goal Update 1. Patient to demonstrate independence with HEP for improved self-reliance of symptom management. Target Visit 4 PT Problem 2 PT Problem #2 Pain PT Goal 1 Goal / Goal Update 1. Patient to decrease subjective reports of pain to <3/10 for improved ADL tolerance. 2. Pt will increase LEFS score by at least 9 points in order to demonstrate the minimal clinically important difference (MCID) in functional improvement. Target Visit 8 PT Problem 3 PT Problem #3 Impaired Range of Motion PT Goal 1 Goal / Goal Update 1. Pt to demonstrate an increase of R hip abduction, ER/IR AROM of WFL to improve LE function 2. Patient will demonstrate improved iliotibial band mobility as evidenced by a decrease in tension/tightness during Brook?s test Target Visit 8 PT Problem 4 PT Problem #4 Impaired Strength PT Goal 1 Goal / Goal Update 1. Patient will demonstrate improved strength of the bilateral hip abductors and extensors to 4/5 on manual muscle testing in order to improve gait stability and stair negotiation. Target Visit 8
--- NOTE | 2025-04-30 16:19 | PTOPEVAL1 ---
Assessment and note entered by Gulshan Rea PT Evaluation Information Assessment Status Evaluation Diagnosis SHAY LE pain ICD-10 Condition Codes (PT) Pain in right hip M25.551,Pain in right knee M25. 561,Pain in left ankle and joints of left foot M25 .572 Onset chronic Subjective Information Pt states she had L ankle pain that felt like stabbing pain when she was walking that was on and off for years, now the L ankle just aches but is not her primary concern. She states now she believes the compensations have caused the R knee and R hip to ache. Pt states she is taking pain medication daily and uses voltaren cream as needed . Pt states the pain makes her limited with ADLs and home making duties. Reported Pain Level Pain Score 5: Self Report Assessment PT Clinical Summary Patient presents to physical therapy with a primary issue of R leg pain in both her hip and knee. Patient demonstrates hip weakness, increased pain with R hip ROM, overall decreased mobility, abnormal posture, gait deficit ([place]), and decreased flexibility that limit their ability to perform activities of daily living and functional movements. Patient will benefit from skilled physical therapy to address the above listed deficits and return to prior level of function. Home exercise program instructed and written handout provided, exercises tolerated well with no adverse effects to note post-session. Patient was educated on importance of adherence to home exercise program. Patient was also educated on anatomy, prognosis, home modalities, and plan of care. Plan of Care Interventions Electrical Stimulation,Gait Training,Hot Pack/Cold Pack,Manual Therapy,Neuro Re-education, Therapeutic Activities,Therapeutic Exercise,Self- Care/Home Management,Other PT Services Indicated Yes Treatment Frequency and 1x week for 8 visits Duration These treatments will address the objective and functional deficits as defined above. The patient will be advanced safely and appropriately in order for the patient to progress towards his/her prior level of function. Additional exercises will be introduced and as well as a comprehensive home exercise program upon discharge, if needed, ?to ensure carryover of functional gains achieved in the clinic. This treatment plan has been reviewed and agreement upon by the patient.
--- NOTE | 2025-06-25 13:18 | PTOPDC ---
Assessment and note entered by Gulshan Rea, PT Evaluation Information Assessment Status Discharge Diagnosis SHAY LE pain ICD-10 Condition Codes (PT) Pain in right hip M25.551,Pain in right knee M25. 561,Pain in left ankle and joints of left foot M25 .572 Onset chronic Subjective Information Pt states she has noticed improvements in her symptoms with physical therapy. She states she would estimate she feels 80% recovered. She has less pain and uses volatern and pain medication less frequently. She reports she plans to continue home exercises to manage symptoms. Reported Pain Level Pain Score 3: Self Report Assessment PT Clinical Summary Patient's pain has improved overall as evidenced by advancements in decreased symptoms and increased mobility, strength, and overall functional use of the extremity. Patient has met therapy goals and is pleased with progress made towards the remaining goals. Patient to discharge from physical therapy this date and continue with updated home exercise program as instructed. Patient to contact physical therapist or primary care provider if questions or concerns arise. Plan of Care PT Services Indicated No
== END 2025-06-25 14:38 | disposition home or self-care (01) ==
LOC: ANHGOSHPT 12:30
PROVIDERS: PCP Family Medicine; Visit Provider Nurse Practitioner Family
DX: M25.561 Pain in right knee (principal); M25.551 Pain in right hip; M25.572 Pain in left ankle and joints of left foot
CPT/HCPCS: 97014; 97110; 97112; 97140; 97161; 97530; G0283